=== PATIENT | male | born 1960 | race Caucasian/White ===

== ENCOUNTER 2017-11-17 14:37 | Emergency (ER) | payer OTHER ==
[~2017-11-17] VITALS: Ht 177.8 cm; Wt 81.7 kg
[2017-11-17] MEDS ORDERED: ELIQUIS5 MG PO (15:02)
[2017-11-17] MEDS ORDERED: LISINOPRIL10 MG PO (15:03)
[2017-11-17] MEDS ORDERED: LASIX 40 MG TAB40 M2 PO (15:03)
[2017-11-17] MEDS ORDERED: ALDACTONE25 MG PO (15:03)
[2017-11-17] MEDS ORDERED: CELEXA20 MG PO (15:03)
[2017-11-17] MEDS ORDERED: AMIODARONE HCL100 MG PO (15:03)
[2017-11-17] MEDS ORDERED: BUSPIRONE HCL10 MG PO (15:04)
[2017-11-17] MEDS ORDERED: ALLEGRA ALLERG180 MG PO (15:04)
[2017-11-17] MEDS ORDERED: IBUPROFEN 600600 M1 PO (16:20)
[2017-11-17] MEDS ORDERED: OXYCODONE HCL 55 MG PO (16:20)
[2017-11-17] MEDS ORDERED: NORFLEX100 MG PO (16:20)
[2017-11-17 16:53] VITALS: BP 147/70
== END 2017-11-17 16:54 | disposition home or self-care (01) ==
LOC: ER 14:37
DX: S40.012A Contusion of left shoulder, initial encounter (principal); S80.01XA Contusion of right knee, initial encounter; S05.12XA Contusion of eyeball and orbital tissues, left eye, initial encounter; V19.3XXA Pedal cyclist (driver) (passenger) injured in unspecified nontraffic accident, initial encounter; Y93.89 Activity, other specified; Y92.89 Other specified places as the place of occurrence of the external cause; Y99.8 Other external cause status

== ENCOUNTER 2017-11-19 07:06 | Emergency (ER) | payer OTHER ==
[~2017-11-19] VITALS: Ht 177.8 cm; Wt 81.7 kg
[~2017-11-19 07:06] MED LIST: ALDACTONE25 MG PO; ALLEGRA ALLERG180 MG PO; AMIODARONE HCL100 MG PO; BUSPIRONE HCL10 MG PO; CELEXA20 MG PO; ELIQUIS5 MG PO; IBUPROFEN 600600 M1 PO; LASIX 40 MG TAB40 M2 PO; LISINOPRIL10 MG PO; NORFLEX100 MG PO; OXYCODONE HCL 55 MG PO
[2017-11-19] MEDS ORDERED: CYCLOBENZAPRINE5 MG PO (08:13)
[2017-11-19] MEDS ORDERED: NORCO 5-325 TA1 EACH PO (08:13)
[2017-11-19 08:32] VITALS: BP 148/69
== END 2017-11-19 08:30 | disposition home or self-care (01) ==
LOC: ER 07:06
DX: S80.01XA Contusion of right knee, initial encounter (principal); Z88.6 Allergy status to analgesic agent; Z88.1 Allergy status to other antibiotic agents; Z88.8 Allergy status to other drugs, medicaments and biological substances; V19.9XXA Pedal cyclist (driver) (passenger) injured in unspecified traffic accident, initial encounter; Y93.89 Activity, other specified; Y92.89 Other specified places as the place of occurrence of the external cause; Y99.8 Other external cause status

== ENCOUNTER 2018-02-11 20:46 | Emergency (ER) | payer OTHER ==
[~2018-02-11] VITALS: Ht 177.8 cm; Wt 81.7 kg
[~2018-02-11 20:46] MED LIST changes: +CYCLOBENZAPRINE5 MG PO; +NORCO 5-325 TA1 EACH PO
[2018-02-11] MEDS ORDERED: ZANTAC 150MG T150 MG PO (21:00)
[2018-02-11] MEDS ORDERED: ACETAMINOPHEN-1 EAC1 PO (22:07)
[2018-02-11 23:21] VITALS: BP 118/72
== END 2018-02-11 23:00 | disposition home or self-care (01) ==
LOC: ER 20:46
DX: S89.91XA Unspecified injury of right lower leg, initial encounter (principal); S80.812A Abrasion, left lower leg, initial encounter; Z88.6 Allergy status to analgesic agent; Z88.1 Allergy status to other antibiotic agents; Z88.8 Allergy status to other drugs, medicaments and biological substances; W22.8XXA Striking against or struck by other objects, initial encounter; Y92.89 Other specified places as the place of occurrence of the external cause; Y93.89 Activity, other specified; Y99.8 Other external cause status